=== PATIENT | female | born 1985 | race Caucasian/White ===

== ENCOUNTER 2016-06-02 08:53 | Emergency (ER) | payer SELFPAY ==
--- NOTE | 2016-06-02 10:11 | ER Document Report ---
ED Oral Problem - General Chief Complaint: Toothache Stated Complaint: TOOTHACHE Notes: Patient is a 30-year-old female, asthma history poor dentition, presents with increasing pain in her right lower molar. She has an appointment with oral surgeon in 2 weeks to have this removed. She has had intermittent pain in that tooth over the past year, but it acutely worsened today. She denies any trauma, facial swelling, tongue elevation, fever, trismus or difficulty swallowing. TRAVEL OUTSIDE OF THE [place] IN LAST 30 DAYS: No - Related Data Allergies/Adverse Reactions: codeine Allergy (Verified 06/02/16 08:56) Past Medical History - General Information source: Patient - Social History Smoking Status: Current Every Day Smoker Chew tobacco use (# tins/day): No Frequency of alcohol use: Occasional Drug Abuse: None Family History: Reviewed & Not Pertinent, Hyperlipidemia, Hypertension. denies : Arthritis, CAD, CVA, DM, Malignancy, Thyroid Disfunction Patient has suicidal ideation: No Patient has homicidal ideation: No Pulmonary Medical History: Reports: Hx Bronchitis Neurological Medical History: Reports: Hx Migraine Renal/ Medical History: Reports: Hx Ovarian Cysts - pcos. Denies: Hx Peritoneal Dialysis Past Surgical History: Reports: Hx Section - x1 - Immunizations Immunizations up to date: No Hx Diphtheria, Pertussis, Tetanus Vaccination: Yes Review of Systems - Review of Systems Notes: REVIEW OF SYSTEMS: CONSTITUTIONAL: -fevers, -chills EENT: +dental pain, -eye pain, -difficulty swallowing, -nasal congestion CARDIOVASCULAR:-chest pain, -syncope. RESPIRATORY: -cough, -SOB GASTROINTESTINAL: -abdominal pain, -nausea, -vomiting, -diarrhea GENITOURINARY: -dysuria, -hematuria MUSCULOSKELETAL: -back pain, -neck pain SKIN: -rash or skin lesions. HEMATOLOGIC: -easy bruising or bleeding. LYMPHATIC: -swollen, enlarged glands. NEUROLOGICAL: -altered mental status or loss of consciousness, -headache, - neurologic symptoms PSYCHIATRIC: -anxiety, -depression. ALL OTHER SYSTEMS REVIEWED AND NEGATIVE. Physical Exam - Vital signs Vitals: Temp Pulse Resp BP Pulse Ox 97.7 F 99 18 120/86 H 100 06/02/16 08:57 06/02/16 08:57 06/02/16 08:57 06/02/16 08:57 06/02/16 08:57 - Notes Notes: PHYSICAL EXAMINATION: GENERAL: Well-appearing, well-nourished and in no acute distress. HEAD: Atraumatic, normocephalic. EYES: Pupils equal round and reactive to light, extraocular movements intact, sclera anicteric, conjunctiva are normal. ENT: right lower molar decay without surrounding abscess or facial swelling, nares patent, oropharynx clear without exudates. Moist mucous membranes. NECK: Normal range of motion, supple without lymphadenopathy LUNGS: Breath sounds clear to auscultation bilaterally and equal. No wheezes rales or rhonchi. HEART: Regular rate and rhythm without murmurs ABDOMEN: Soft, nontender, normoactive bowel sounds. No guarding, no rebound. No masses appreciated. EXTREMITIES: Normal range of motion, no pitting or edema. No cyanosis. NEUROLOGICAL: Cranial nerves grossly intact. Normal speech, normal gait. Normal sensory, motor, and reflex exams. PSYCH: Normal mood, normal affect. SKIN: Warm, Dry, normal turgor, no rashes or lesions noted. Course - Re-evaluation Re-evalutation: Offered patient a dental block, but she refused at this time. Told her to continue Motrin. She is allergic to codeine and it causes a rash. Will provide a few [place] and penicillin and have her follow-up with dentist. Told her that she will not receive any more narcotics from the emergency room for the dental pain. - Vital Signs Vital signs: Temp Pulse Resp BP Pulse Ox 97.7 F 87 18 119/89 H 100 06/02/16 08:57 06/02/16 10:53 06/02/16 10:53 06/02/16 10:53 06/02/16 10:53 Discharge - Discharge Clinical Impression: Pain, dental Condition: Good Disposition: HOME, SELF-CARE Additional Instructions: TOOTHACHE: Your pain is due to dental decay. The tooth must be repaired in order for you to feel better. You will, therefore, be referred to a dentist. We do not have dentists on the staff at [facility]. Severe swelling or drainage around a tooth usually means a dental abscess. This also requires evaluation and treatment by the dentist, but antibiotics may be prescribed while awaiting dental treatment. You should be rechecked immediately if you develop major swelling of the face, increasing pain, a lump in the jaw or gums, headache, difficulty swallowing, or fever. ORAL NARCOTIC MEDICATION: You have been given a prescription for pain control. This medication is a narcotic. It's best taken with food, as nausea can result if taken on an empty stomach. Don't operate machinery or drive within six hours of taking this medication. Do not combine this medicine with alcohol, or with any medication which can cause sedation (such as cold tablets or sleeping pills) unless you get permission from the physician. Narcotics tend to cause constipation. If possible, drink plenty of fluids and eat a diet high in fiber and fruits. Please be aware that prescription narcotics also have the potential for abuse. People become addicted to these medications because of the general sense of wellbeing that they induce. This feeling along with a significant reduction in tension, anxiety, and aggression provides a stimulating seductive quality to these drugs. Once your pain is under control, we encourage you to discard your unused narcotics. PENICILLIN V K: You have been given a prescription for Penicillin VK. Your physician has determined that this is the best antibiotic for your condition. Pen VK can be taken with meals, however more of the antibiotic gets into the bloodstream if it's taken on an empty stomach. Penicillin usually has no side effects. However, allergy to penicillins is common. If you have had an allergic reaction to any drug of the penicillin family, you should never take any other penicillin. Notify your doctor at once if you develop hives, itching, swelling, faintness, or shortness of breath. FOLLOW-UP CARE: You have been referred for follow-up care to the dentists listed below. Call the dentists office for an appointment as you were instructed or within the next two days. If you experience worsening or a significant change in your symptoms, notify the physician immediately or return to the Emergency Department at any time for re-evaluation. [facility] [address] [place], [place] Saturday mornings, by appointment [facility] [address] [place] [address] [facility] [address] [facility] [place] [address] [facility] [place] [address] [facility] [email or web address] [address] [place] [address] Saturday- 8:00am to 5:00 pm Will see patients from other [facility]. Charges based on income and family size and accepts Medicare, Medicaid, and Insurances Will pull molars [facility] [id number] Hours of Operation 8:00 am - 4:30 pm weekdays The following dental offices accept Medicaid: [facility] Dr. Hartman Dr. Shanks Dr. Hernandez Dr. Lala Juan [place], [facility], and [facility] Dr. Becerra ([place]) Dr. Brown ([place]) [facility] Drs. Mcintyre ([place]) Dr. Diane ([place]) [facility] Dr. Garcia ([place]) Drs. Denson and ([place]) Medicaid Care Line Prescriptions: Hydrocodone/Acetaminophen [[place] 5-325 mg Tablet] 1 tab PO Q6H PRN #10 tablet PRN Reason: Penicillin V Potassium [Penicillin Vk 500 mg Tablet] 500 mg PO TID #21 tablet Referrals: RUBIO GARCIA, MOLD STAMPER [Primary Care Provider] - Follow up as needed
[2016-06-02 10:55] VITALS: BP 119/89
== END 2016-06-02 10:46 | disposition home or self-care (01) ==
LOC: ER 08:53
DX: K08.9 Disorder of teeth and supporting structures, unspecified (principal); F17.200 Nicotine dependence, unspecified, uncomplicated; Z88.6 Allergy status to analgesic agent
CPT/HCPCS: 99282

== ENCOUNTER 2016-08-08 18:37 | Emergency (ER) | payer SELFPAY ==
[2016-08-08 18:44] VITALS: BP 125/85
--- NOTE | 2016-08-08 19:45 | ER Document Report ---
ED Medical Screen (RME) - General Chief Complaint: Abdominal Pain Stated Complaint: DIZZY AND LIGHT HEADED Mode of Arrival: Ambulatory Notes: This is a 30-year-old female with a history of PCO S who presents with a several month history of varied symptoms. She states that she feels dizzy and lightheaded almost every day. Also she reports bilateral lower pelvic pain for the past several weeks. She has had nausea but no vomiting. No dysuria. No vaginal discharge. She does report intermittent paresthesias to her hands and feet. She became worried after reading online about PCOS and was concerned that her symptoms might be secondary to blood sugar problems. I have greeted and performed a rapid initial assessment of this patient. A comprehensive ED assessment and evaluation of the patient, analysis of test results and completion of the medical decision making process will be conducted by additional ED providers. TRAVEL OUTSIDE OF THE [place] IN LAST 30 DAYS: No - Related Data Allergies/Adverse Reactions: codeine Allergy (Verified 06/02/16 08:56) Past Medical History Pulmonary Medical History: Reports: Hx Bronchitis Neurological Medical History: Reports: Hx Migraine Renal/ Medical History: Reports: Hx Ovarian Cysts - pcos. Denies: Hx Peritoneal Dialysis Past Surgical History: Reports: Hx Section - x1 - Immunizations Immunizations up to date: No Hx Diphtheria, Pertussis, Tetanus Vaccination: Yes Physical Exam - Vital signs Vitals: Temp Pulse Resp BP Pulse Ox 98.5 F 101 H 18 125/85 98 08/08/16 18:41 08/08/16 18:41 08/08/16 18:41 08/08/16 18:41 08/08/16 18:41 Course - Vital Signs Vital signs: Temp Pulse Resp BP Pulse Ox 98.5 F 101 H 18 125/85 98 08/08/16 18:41 08/08/16 18:41 08/08/16 18:41 08/08/16 18:41 08/08/16 18:41
[2016-08-08 20:18] LABS: ABSOLUTE EOSINOPHILS # (AUTO) 0.3 10^3/uL (0.0-0.6); ABSOLUTE MONOCYTES (AUTO) 0.5 10^3/uL (0.1-1.4); ABSOLUTE NEUT (AUTO) 6.4 10^3/uL (1.7-8.2); BASOPHILS % (AUTO) 0.5 % (0-2); EOSINOPHILS % (AUTO) 2.8 % (0-6); HEMATOCRIT 41.5 % (36.0-47.0); HEMOGLOBIN 13.8 g/dL (12.0-15.5); HGB HCT DIFFERENCE -0.1; LYMPHOCYTES % (AUTO) 21.7 % (13-45); MEAN CORPUSCULAR HEMOGLOBIN 29.6 pg (27.0-33.4); MEAN CORPUSCULAR HGB CONC 33.3 g/dL (32.0-36.0); MEAN CORPUSCULAR VOLUME 89 fl (80-97); MONOCYTES % (AUTO) 5.9 % (3-13); RED BLOOD COUNT 4.68 10^6/uL (3.72-5.28); RED CELL DISTRIBUTION WIDTH 14.1 % (11.5-14.0); SEGMENTED NEUTROPHILS % (AUTO) 69.1 % (42-78); WHITE BLOOD COUNT 9.3 10^3/uL (4.0-10.5)
[2016-08-08 20:24] LABS: APPEARANCE,URINE SLIGHTLY-CLOUDY; BILIRUBIN,URINE NEGATIVE (NEGATIVE); GLUCOSE, URINE NEGATIVE (NEGATIVE); KETONES,URINE NEGATIVE (NEGATIVE); LEUKOCYTE ESTERASE,URINE NEGATIVE (NEGATIVE); NITRITE,URINE NEGATIVE (NEGATIVE); PROTEIN,URINE NEGATIVE (NEGATIVE); URINE SPECIFIC GRAVITY 1.011; UROBILINOGEN,URINE NEGATIVE mg/dL (<2.0)
[2016-08-08 20:44] LABS: ALANINE AMINOTRANSFERASE 30 U/L (9-52); ALBUMIN 4.3 g/dL (3.5-5.0); ALKALINE PHOSPHATASE 65 U/L (38-126); ANION GAP 13 (5-19); ASPARTATE AMINO TRANSFERASE 25 U/L (14-36); BILIRUBIN,DIRECT 0.3 mg/dL (0.0-0.4); BILIRUBIN,TOTAL 0.6 mg/dL (0.2-1.3); BLOOD UREA NITROGEN 14 mg/dL (7-20); CALCIUM 9.7 mg/dL (8.4-10.2); CARBON DIOXIDE 26 mmol/L (22-30); CHLORIDE 105 mmol/L (98-107); CREATININE RESULT 0.81 mg/dL (0.52-1.25); GLUCOSE 92 mg/dL (75-110); POTASSIUM 4.3 mmol/L (3.6-5.0); SODIUM 143.5 mmol/L (137-145); TOTAL PROTEIN 7.5 g/dL (6.3-8.2)
--- NOTE | 2016-08-08 22:26 | ER Document Report ---
ED General - General Chief Complaint: Abdominal Pain Stated Complaint: DIZZY AND LIGHT HEADED Time seen by provider: 22:15 Mode of Arrival: Ambulatory Notes: Patient is a 30-year-old female with a history of PCOS that comes emergency department for chief complaint of several months of overriding of symptoms, she states that on almost a daily basis she'll get a very short episode where she will feel lightheaded, she states that intermittently she will feel tingling in her hands on both sides or in her feet on both sides, this is for a very short period and does not persist. Patient states that occasionally she will have lower abdominal/pelvic pain, she denies vomiting, dysuria, flank pain, abnormal bowel movements, fevers. Patient states that she was reading about PCOS and she became worried that she might have diabetes. Patient denies any current symptoms other than feeling hungry. TRAVEL OUTSIDE OF THE [place] IN LAST 30 DAYS: No - Related Data Allergies/Adverse Reactions: codeine Allergy (Verified 06/02/16 08:56) Past Medical History - General Information source: Patient - Social History Smoking Status: Current Every Day Smoker Smoking Education Provided: Yes - <3 min Drug Abuse: None Lives with: Family Family History: Reviewed & Not Pertinent, Hyperlipidemia, Hypertension. denies : Arthritis, CAD, CVA, DM, Malignancy, Thyroid Disfunction Pulmonary Medical History: Reports: Hx Bronchitis Neurological Medical History: Reports: Hx Migraine Renal/ Medical History: Reports: Hx Ovarian Cysts - pcos. Denies: Hx Peritoneal Dialysis Past Surgical History: Reports: Hx Section - x1 - Immunizations Immunizations up to date: No Hx Diphtheria, Pertussis, Tetanus Vaccination: Yes Review of Systems - Review of Systems Constitutional: See HPI EENT: No symptoms reported Cardiovascular: See HPI Respiratory: No symptoms reported Gastrointestinal: No symptoms reported Genitourinary: No symptoms reported Female Genitourinary: No symptoms reported Musculoskeletal: No symptoms reported Skin: No symptoms reported Hematologic/Lymphatic: No symptoms reported Neurological/Psychological: See HPI Physical Exam - Vital signs Vitals: Temp Pulse Resp BP Pulse Ox 98.5 F 101 H 18 125/85 98 08/08/16 18:41 08/08/16 18:41 08/08/16 18:41 08/08/16 18:41 08/08/16 18:41 Interpretation: Normal - General General appearance: Appears well, Alert In distress: None - Sitting up, conversational, well appearing - HEENT Head: Normocephalic, Atraumatic Eyes: Normal Conjunctiva: Normal Extraocular movements intact: Yes Eyelashes: Normal Pupils: PERRL Sinus: Normal Nasal: Normal Mouth/Lips: Normal Mucous membranes: Normal Pharynx: Normal Neck: Normal - Respiratory Respiratory status: No respiratory distress Chest status: Nontender Breath sounds: Normal. No: Decreased air movement, Wheezing Chest palpation: Normal - Cardiovascular Rhythm: Regular. No: Tachycardia Heart sounds: Normal auscultation, S1 appreciated, S2 appreciated Murmur: No - Abdominal Inspection: Normal Distension: No distension Bowel sounds: Normal Tenderness: Nontender. No: Tender Organomegaly: No organomegaly - Back Back: Normal, Nontender. No: Tender - Extremities General upper extremity: Normal inspection, Nontender, Normal color, Normal ROM , Normal temperature General lower extremity: Normal inspection, Nontender, Normal color, Normal ROM , Normal temperature, Normal weight bearing. 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 Not tachycardic on my exam. CBC completely unremarkable, chemistry completely unremarkable, TSH and A1c reviewed which were ordered from triage, these are also within normal ranges. Patient was provided with a copy of these, discussed in detail. Patient is very relieved with these findings. Immediately after this information she asks if she can leave. She denies any current symptoms. Her physical examination is unremarkable. Recommended smoking cessation, reduction in caffeine, follow- up with primary care, discussed return precautions, patient states understanding and agreement. - Vital Signs Vital signs: Temp Pulse Resp BP Pulse Ox 98.5 F 101 H 18 125/85 98 08/08/16 18:41 08/08/16 18:41 08/08/16 18:41 08/08/16 18:41 08/08/16 18:41 - Laboratory Result Diagrams: 08/08/16 19:45 08/08/16 19:45 Laboratory results interpreted by me: 08/08/16 19:45 RDW 14.1 H Discharge - Discharge Clinical Impression: Episodic lightheadedness, Paresthesias Condition: Stable Disposition: HOME, SELF-CARE Additional Instructions: Your evaluation today does not show any emergent abnormalities. Your blood glucose is normal, your thyroid screen is normal, your workup is normal. Your examination shows no concerning abnormalities. Recommendation is to stop smoking, reduce caffeine intake, follow up with primary care for additional evaluation. Return to emergency department for any concerning symptoms.
== END 2016-08-08 23:10 | disposition home or self-care (01) ==
LOC: ER 18:37
DX: R20.9 Unspecified disturbances of skin sensation (principal); R42 Dizziness and giddiness; R10.9 Unspecified abdominal pain; F17.200 Nicotine dependence, unspecified, uncomplicated; Z88.6 Allergy status to analgesic agent
CPT/HCPCS: 36415; 80053; 81001; 81025; 83036; 84443; 85025; 99284